=== PATIENT | female | born 1945 | race Caucasian/White ===

== ENCOUNTER 2024-04-01 09:53 | Inpatient (IN) | payer SELFPAY ==
[~2024-04-01] VITALS: Ht 154.9 cm; Wt 42.8 kg
[2024-04-01] MEDS ORDERED: ACETAMINOPHEN 1000MG/100ML 100 ML IV ONE (10:45)
[2024-04-01 10:59] LABS: CHLORIDE 72 mEq/L (98-107)
[2024-04-01 11:00] LABS: CARBON DIOXIDE 28 mEq/L (21-32)
[2024-04-01 11:05] LABS: CREATININE 0.8 mg/dL (0.6-1.0); GLUCOSE 132 mg/dL (70-105)
[2024-04-01 11:06] LABS: UREA NITROGEN BLOOD 20 mg/dL (9-23)
[2024-04-01 11:07] LABS: ALANINE AMINOTRANSFERASE 30 IU/L (10-49); ALBUMIN 4.3 g/dL (3.2-4.8); ASPARTATE AMINOTRANSFERASE 44 IU/L (<34)
[2024-04-01 11:08] LABS: BILIRUBIN DIRECT 0.3 mg/dL (<=3.0); BILIRUBIN TOTAL 1.2 mg/dL (0.1-1.0); PROTEIN TOTAL 7.5 g/dL (6.0-8.3)
[2024-04-01] MEDS: ACETAMINOPHEN 1000 MG/100 ML IV NR (11:30)
[2024-04-01] MEDS ORDERED: ACETAMINOPHEN 1000 MG/100 ML IV NR (11:30)
[2024-04-01] MEDS ORDERED: ACETAMINOPHEN 1000 MG/100 ML MC NR (11:30)
[2024-04-01 11:39] LABS: SODIUM 109 mEq/L (136-145)
[2024-04-01 11:44] LABS: TROPONIN I HIGH SENSITIVITY 11 ng/L (3.0-34)
[2024-04-01] MEDS: SODIUM CHLORIDE 0.9% 1,000 ML IV ONE (11:45)
[2024-04-01] MEDS: ONDANSETRON HCL 4MG/2ML INJ IV ONE (11:58)
[2024-04-01] MEDS: KCL 20MEQ/100ML PREMIX 100 ML IV ONE (11:59)
[2024-04-01 12:04] LABS: HEMATOCRIT. 30.7 % (36.0-48.0); MEAN CORPUSCULAR HEMOGLOBIN 28.7 pg (28.0-32.0); PLATELET 235 x1000/uL (130-400); RED BLOOD CELL COUNT 3.84 mill/uL (4.2-5.4); RED CELL DISTRIBUTION WIDTH 12.8 % (11.6-14.6); WHITE BLOOD COUNT 7.5 x1000/uL (4.5-11.0)
[2024-04-01 12:08] LABS: DIFFERENTIAL COMMENT 1
[2024-04-01 12:20] LABS: TROPONIN I HIGH SENSITIVITY 11 ng/L (3.0-34)
[2024-04-01] MEDS ORDERED: ONDANSETRON HCL 4MG/2ML INJ IV PRN (14:30)
[2024-04-01] MEDS ORDERED: DOCUSATE SODIUM 100MG CAPSULE PO PRN (14:30)
[2024-04-01] MEDS ORDERED: ACETAMINOPHEN 325MG TABLET PO PRN ×2 (14:30)
[2024-04-01] MEDS ORDERED: GUAIFENESIN 200MG/10ML SUGAR FREE UDC PO PRN (14:30)
[2024-04-01] MEDS ORDERED: IPRATROPIUM/ALBUTEROL 0.5-3(2.5)MG/3ML NEB HHN PRN (14:30)
[2024-04-01] MEDS ORDERED: CLONIDINE 0.1MG TABLET PO PRN (14:30)
[2024-04-01] MEDS ORDERED: MAGNESIUM/ALUMINUM HYDROXIDE/SIMETHICONE 30ML UDC PO PRN (14:30)
[2024-04-01 15:56] LABS: PLATELET ESTIMATE NORMAL
[2024-04-01] MEDS: SODIUM CHLORIDE 3% 500 ML IV ONE (16:42)
[2024-04-01] MEDS: POTASSIUM CHLORIDE 20MEQ TABLET SR PO NR (16:42)
[2024-04-01 18:29] LABS: LDL CHOLESTEROL 116 mg/dL (5-100); TRIGLYCERIDE 51 mg/dL (0-150)
[2024-04-01 18:30] LABS: CHOLESTEROL 169 mg/dL (<200); HDL CHOLESTEROL 51 mg/dL (>65)
[2024-04-01 18:31] LABS: PHOSPHORUS 2.7 mg/dL (2.5-4.9)
[2024-04-01 18:33] LABS: T4 FREE 1.97 ng/dL (0.89-1.76); THYROID STIMULATING HORMONE 0.19 uIU/mL (0.55-4.78)
[2024-04-01 18:36] LABS: SODIUM 112 mEq/L (136-145)
[2024-04-01] MEDS ORDERED: LOPERAMIDE HCL 2MG CAPSULE PO PRN (19:15)
[2024-04-01] MEDS: ENOXAPARIN 30MG/0.3ML SYR SUBCUT SCH (20:00)
[2024-04-01 22:35] LABS: POTASSIUM 2.2 mEq/L (3.5-5.1)
[2024-04-02] MEDS: DEXTROSE 5% WATER 1,000 ML IV SCH (00:45)
[2024-04-02] MEDS: POTASSIUM CHLORIDE 20MEQ TABLET SR PO NR (01:37)
[2024-04-02 01:49] VITALS: BP 148/67; PULSE 78; RESP 18; TEMP 98.3
[2024-04-02 04:00] VITALS: BP 126/63; PULSE 71; RESP 19; TEMP 97.5
[2024-04-02 06:47] LABS: CARBON DIOXIDE 29 mEq/L (21-32); CHLORIDE 89 mEq/L (98-107); SODIUM 122 mEq/L (136-145)
[2024-04-02 06:49] LABS: CALCIUM 8.5 mg/dL (8.7-10.4)
[2024-04-02 06:53] LABS: CREATININE 0.9 mg/dL (0.6-1.0); GLUCOSE 94 mg/dL (70-105)
[2024-04-02 06:54] LABS: UREA NITROGEN BLOOD 17 mg/dL (9-23)
[2024-04-02 07:05] LABS: HEPATITIS B SURFACE ANTIGEN NEGATIVE (Negative)
[2024-04-02 07:26] LABS: HEPATITIS C AB NON REACTIVE (Neg) (Negative)
[2024-04-02 08:00] VITALS: BP_SYST 120; BP_SYST 122; BP_SYST 123; BP_SYST 234; BP_DIAS 122; BP_DIAS 33; BP_DIAS 46; BP_DIAS 71; BP_DIAS 79; PULSE 69; PULSE 72; PULSE 79; RESP 18; TEMP 97.5; TEMP 98.6; TEMP 98.8
[2024-04-02 09:00] LABS: HEMOGLOBIN. 10.2 g/dL (12.0-16.0); MEAN CORPUSCULAR HGB CONC 35.2 g/dL (31.0-37.0); MEAN CORPUSCULAR VOLUME 82.4 fL (81.0-99.0); MEAN PLATELET VOLUME 7.4 fl (7.4-10.4); PLATELET 265 x1000/uL (130-400); RED BLOOD CELL COUNT 3.52 mill/uL (4.2-5.4); RED CELL DISTRIBUTION WIDTH 13.2 % (11.6-14.6); WHITE BLOOD COUNT 5.9 x1000/uL (4.5-11.0)
[2024-04-02 09:02] LABS: DIFFERENTIAL COMMENT 1
[2024-04-02] MEDS: METHIMAZOLE 5MG TABLET PO SCH (09:32)
[2024-04-02] MEDS: PANTOPRAZOLE SODIUM 40 MG/VIAL IV SCH (09:32)
[2024-04-02] MEDS: POTASSIUM CHLORIDE 20MEQ TABLET SR PO SCH (09:32)
[2024-04-02] MEDS ORDERED: METO-539 MT (10:16)
[2024-04-02] MEDS ORDERED: LOSA1TAB34 MT (10:16)
[2024-04-02] MEDS ORDERED: OMEP20CA14 MT (10:16)
[2024-04-02 12:00] VITALS: BP 118/79; PULSE 76; RESP 20; TEMP 98.4
[2024-04-02 15:36] LABS: CHLORIDE 93 mEq/L (98-107); POTASSIUM 3.4 mEq/L (3.5-5.1); SODIUM 124 mEq/L (136-145)
[2024-04-02 15:37] LABS: CALCIUM 8.6 mg/dL (8.7-10.4); CARBON DIOXIDE 26 mEq/L (21-32)
[2024-04-02 15:42] LABS: CREATININE 0.8 mg/dL (0.6-1.0); GLUCOSE 93 mg/dL (70-105); UREA NITROGEN BLOOD 14 mg/dL (9-23)
[2024-04-02 16:00] VITALS: BP 120/76; PULSE 79; RESP 18; TEMP 98.2
[2024-04-02 17:20] LABS: CLARITY URINE CLEAR (CLEAR); COLOR URINE YELLOW (YELLOW); GLUCOSE URINE NEGATIVE (NEGATIVE); KETONES URINE NEGATIVE (NEGATIVE); LEUKOCYTE ESTERASE URINE 2+ (NEGATIVE); NITRITE URINE POSITIVE (NEGATIVE); OCCULT BLOOD URINE 1+ (NEGATIVE); PROTEIN URINE NEGATIVE (NEGATIVE); SPECIFIC GRAVITY URINE 1.009 (1.005-1.030); UROBILINOGEN URINE 0.2 E.U./dL (0.2-1.0)
[2024-04-02 17:55] LABS: *AMPHETAMINES SCREEN URINE NEGATIVE (NEGATIVE); *BARBITURATES SCREEN URINE NEGATIVE (NEGATIVE); *BENZODIAZEPINES SCREEN URINE NEGATIVE (NEGATIVE); *COCAINE SCREEN URINE NEGATIVE (NEGATIVE)
[2024-04-02 17:56] LABS: CANNABINOID URINE SCREEN NEGATIVE (NEGATIVE); ECSTASY MDMA SCREEN URINE NEGATIVE (NEGATIVE); METHADONE URINE SCREEN NEGATIVE (NEGATIVE); OPIATES URINE SCREEN NEGATIVE (NEGATIVE); PHENCYCLIDINE URINE SCREEN NEGATIVE (NEGATIVE)
[2024-04-02 18:02] LABS: PLATELET ESTIMATE NORMAL
[2024-04-02 18:06] LABS: BACTERIA URINE 3+; SQUAMOUS EPITHELIAL CELL URINE FEW /lpf (RARE/1+)
[2024-04-02] MEDS: SODIUM CHLORIDE 0.9% 1,000 ML IV NR (18:10)
[2024-04-02] MEDS: DEXT 5%/0.45% NACL 1000ML 1,000 ML IV SCH (18:28)
[2024-04-02 20:00] VITALS: BP 143/65; PULSE 74; RESP 19; TEMP 97.5
[2024-04-02] MEDS ORDERED: AZITHROMYCIN 500MG/250ML 250 ML IV SCH (20:00)
[2024-04-03] VITALS: BP 140/67; PULSE 76; RESP 20; TEMP 97.5
[2024-04-03 04:00] VITALS: BP 130/70; PULSE 69; RESP 18; TEMP 97.5
[2024-04-03 06:12] LABS: BASOPHILS % 0.1 % (0.0-2.0); EOSINOPHILS % 0.4 % (0.0-5.0); HEMATOCRIT. 29.3 % (36.0-48.0); HEMOGLOBIN. 10.2 g/dL (12.0-16.0); LYMPHOCYTES % 21.9 % (20.0-50.0); MEAN CORPUSCULAR HEMOGLOBIN 28.9 pg (28.0-32.0); MEAN CORPUSCULAR HGB CONC 34.8 g/dL (31.0-37.0); MEAN CORPUSCULAR VOLUME 83.1 fL (81.0-99.0); MEAN PLATELET VOLUME 7.3 fl (7.4-10.4); MONOCYTES % 11.9 % (2.0-8.0); NEUTROPHILS % 65.7 % (40.0-76.0); PLATELET 272 x1000/uL (130-400); RED BLOOD CELL COUNT 3.52 mill/uL (4.2-5.4); RED CELL DISTRIBUTION WIDTH 13.2 % (11.6-14.6); WHITE BLOOD COUNT 8.3 x1000/uL (4.5-11.0)
[2024-04-03 06:25] LABS: CARBON DIOXIDE 26 mEq/L (21-32); CHLORIDE 96 mEq/L (98-107); POTASSIUM 3.3 mEq/L (3.5-5.1); SODIUM 126 mEq/L (136-145)
[2024-04-03 06:27] LABS: CALCIUM 8.9 mg/dL (8.7-10.4)
[2024-04-03 06:31] LABS: CREATININE 0.7 mg/dL (0.6-1.0); GLUCOSE 100 mg/dL (70-105)
[2024-04-03 06:32] LABS: UREA NITROGEN BLOOD 8 mg/dL (9-23)
[2024-04-03 08:00] VITALS: BP 151/67; PULSE 81; RESP 16; TEMP 97.9
[2024-04-03 12:00] VITALS: BP 135/78; PULSE 80; RESP 20; TEMP 99.1
[2024-04-03 16:00] VITALS: BP 158/69; PULSE 91; RESP 22; TEMP 98.1
[2024-04-03 20:27] VITALS: BP 146/69; PULSE 74; RESP 20; TEMP 97.7
[2024-04-03] MEDS: NITROFURANTOIN 100MG M/M CAPSULE PO SCH (20:47)
[2024-04-04 00:03] VITALS: BP 144/70; PULSE 75; RESP 20; TEMP 97.6
[2024-04-04 04:12] VITALS: BP 144/63; PULSE 81; RESP 20; TEMP 97.7
[2024-04-04 07:31] LABS: CHLORIDE 98 mEq/L (98-107); POTASSIUM 3.8 mEq/L (3.5-5.1); SODIUM 127 mEq/L (136-145)
[2024-04-04 07:32] LABS: CALCIUM 8.6 mg/dL (8.7-10.4); CARBON DIOXIDE 27 mEq/L (21-32)
[2024-04-04 07:37] LABS: CREATININE 0.7 mg/dL (0.6-1.0); GLUCOSE 91 mg/dL (70-105); UREA NITROGEN BLOOD 12 mg/dL (9-23)
[2024-04-04 07:39] LABS: BASOPHILS % 0.1 % (0.0-2.0); EOSINOPHILS % 0.8 % (0.0-5.0); HEMATOCRIT. 28.9 % (36.0-48.0); HEMOGLOBIN. 10.2 g/dL (12.0-16.0); LYMPHOCYTES % 20.8 % (20.0-50.0); MEAN CORPUSCULAR HEMOGLOBIN 29.4 pg (28.0-32.0); MEAN CORPUSCULAR HGB CONC 35.2 g/dL (31.0-37.0); MEAN CORPUSCULAR VOLUME 83.4 fL (81.0-99.0); MEAN PLATELET VOLUME 7.1 fl (7.4-10.4); MONOCYTES % 10.1 % (2.0-8.0); NEUTROPHILS % 68.2 % (40.0-76.0); PLATELET 315 x1000/uL (130-400); RED BLOOD CELL COUNT 3.47 mill/uL (4.2-5.4); WHITE BLOOD COUNT 7.4 x1000/uL (4.5-11.0)
[2024-04-04 08:00] VITALS: BP 146/70; PULSE 83; RESP 20; TEMP 98.9
[2024-04-04] MEDS ORDERED: NITR100C11 PO (09:32)
[2024-04-04 12:00] VITALS: BP 168/85; PULSE 80; RESP 20; TEMP 97.1
[2024-04-04 13:44] VITALS: BP 145/80; PULSE 80; TEMP 97.1; O2SAT 97
== END 2024-04-04 14:40 | disposition home or self-care (01) | DRG 137 ==
LOC: ER 09:53 → EDBEDREQSVC 11:56 → EDBEDREQTM 11:56 → EDBEDREQ 11:56 → 5WST 12:15 → EDBEDREQ 12:16 → EDBEDREQTM 12:16 → 5WST 15:27 → 7WST 04-02 01:32
PROVIDERS: ADMIT Internal Medicine; ATTEND Internal Medicine
DX: U07.1 COVID-19 (principal); D63.8 Anemia in other chronic diseases classified elsewhere; E87.1 Hypo-osmolality and hyponatremia; N30.90 Cystitis, unspecified without hematuria; E86.1 Hypovolemia; K52.9 Noninfective gastroenteritis and colitis, unspecified; I10 Essential (primary) hypertension; E87.6 Hypokalemia; E05.90 Thyrotoxicosis, unspecified without thyrotoxic crisis or storm; Z79.899 Other long term (current) drug therapy; Z88.0 Allergy status to penicillin; Z90.49 Acquired absence of other specified parts of digestive tract
CPT/HCPCS: 36415; 71045; 74176; 80048; 80061; 80076; 80305; 81003; 83735; 84100; 84132; 84145; 84295; 84439; 84443; 84484; 85025; 85379; 86705; 87340; 87426; 87804; 93005; 99285; J0456; J2405; J2470; J3480; J7030; J7060; J7070; J0131